=== PATIENT | female | born 1975 | race Hispanic/Latino ===

== ENCOUNTER 2022-02-18 16:27 | Emergency (ER) | payer BC, OTHER ==
[~2022-02-18] VITALS: Ht 154.9 cm; Wt 63.5 kg
[2022-02-18 17:44] LABS: APPEARANCE,URINE Clear (CLEAR); BILIRUBIN,URINE Negative (NEGATIVE); COLOR,URINE Yellow (YELLOW); GLUCOSE, URINE (UA) Negative (NEGATIVE); KETONES,URINE Negative (NEGATIVE); LEUKOCYTE ESTERASE ,URINE Trace (NEGATIVE); NITRATE,URINE Negative (NEGATIVE); OCCULT BLOOD,URINE Negative (NEGATIVE); PH,URINE 5.5 (5.0-8.0); PROTEIN,URINE Negative (NEGATIVE); UROBILINOGEN,URINE 0.2 mg/dL (0.2-1.0)
[2022-02-18 17:49] LABS: MEAN CORPUSCULAR HEMOGLOBIN 21.1 pg (27.0-33.0); MEAN CORPUSCULAR HGB CONC 29.4 g/dL (32.0-36.0); MEAN CORPUSCULAR VOLUME 71.9 fL (79-99); PLATELET COUNT (AUTO) 407 K/uL (130-400); RED BLOOD CELL COUNT(AUTO) 4.31 MIL/uL (4.00-5.50); RED CELL DISTRIBUTION WIDTH 21.9 % (11.0-15.5); WHITE BLOOD COUNT (AUTO) 9.8 K/uL (4.8-10.8)
[2022-02-18 17:51] LABS: BACTERIA,URINE Many /HPF (None Seen); MUCUS,URINE Few LPF (None Seen); RBC,URINE 0-1 /HPF (0-1)
[2022-02-18 18:01] LABS: CREATININE 0.8 mg/dL (0.5-1.5); POTASSIUM 3.2 mmol/L (3.5-5.1)
[2022-02-18 18:04] VITALS: BP 138/90
[2022-02-18 18:06] LABS: ALBUMIN 3.8 g/dL (3.5-5.0); BILIRUBIN,TOTAL 0.3 mg/dL (0.2-1.0); TOTAL PROTEIN, SERUM 7.7 g/dL (6.0-8.3)
[2022-02-18 18:19] LABS: BASOPHILS % (MANUAL) 1 % (0-2); LYMPHOCYTES % (MANUAL) 10 % (22-44); MONOCYTES % (MANUAL) 1 % (2-9); SEGMENTED NEUTROPHILS % 88 % (40-70)
[2022-02-18 18:20] LABS: MAN.DIFF COMMENT-IMPRESSION MANUAL DIF
[2022-02-18] MEDS ORDERED: POTASSIUM BICARB/CIT AC 25 MEQ TABLET.EFF PO ONE (19:00)
[2022-02-18] MEDS ORDERED: 0.9%NACL 1000ML 1,000 ML IV ONE (19:00)
[2022-02-18] MEDS ORDERED: CEFTRIAXONE 1G VIAL IVP ONE (19:00)
[2022-02-18] MEDS ORDERED: PROCHLORPERAZINE 10MG/2ML INJ IV ONE (19:00)
[2022-02-18] MEDS ORDERED: DiphenhydrAMINE HCL 50 MG/ML VIAL IV ONE (19:00)
[2022-02-18] MEDS ORDERED: CEPH500B PO (20:31)
== END 2022-02-18 21:10 | disposition home or self-care (01) ==
LOC: EDH 16:27
DX: N39.0 Urinary tract infection, site not specified (principal); E11.9 Type 2 diabetes mellitus without complications
CPT/HCPCS: 36415; 80053; 81001; 81025; 85025; 87077; 87088; 87186; 96361; 96374; 96375; 99284; J0696; J0780; J1200

== ENCOUNTER 2023-02-21 15:44 | Emergency (ER) | payer BC ==
[~2023-02-21] VITALS: Ht 154.9 cm; Wt 69.4 kg
[~2023-02-21 15:44] MED LIST: AMLO5TAB4 PO; CYAN-52 PO; FERR-82 PO; FOLI1 PO; HYDR-3830 PO; PANT40TA PO; SERT50TA PO
[2023-02-21 16:26] LABS: APPEARANCE,URINE CLEAR (CLEAR); BILIRUBIN,URINE NEGATIVE (NEGATIVE); COLOR,URINE LIGHT-YELLOW (YELLOW); GLUCOSE, URINE (UA) NEGATIVE (NEGATIVE); KETONES,URINE NEGATIVE (NEGATIVE); LEUKOCYTE ESTERASE ,URINE NEGATIVE Leu/uL (NEGATIVE); NITRATE,URINE NEGATIVE (NEGATIVE); OCCULT BLOOD,URINE NEGATIVE (NEGATIVE); PH,URINE 5.5 (5.0-8.0); PROTEIN,URINE NEGATIVE (NEGATIVE); UROBILINOGEN,URINE 0.2 mg/dL (0.2-1.0)
[2023-02-21 16:33] LABS: BACTERIA,URINE RARE /HPF (None Seen); SQUAMOUS EPITHELIAL CELL,UR MOD /HPF (0-2); WBC,URINE 0-1 /HPF (0-1)
[2023-02-21 16:33] LABS: BASOPHILS % (AUTO) 0.6 % (0.0-5.0); EOSINOPHILS % (AUTO) 2.2 % (0.0-8.0); HEMATOCRIT 36.4 % (36-48); LYMPHOCYTES % (AUTO) 15.1 % (21.0-51.0); MEAN CORPUSCULAR HEMOGLOBIN 27.8 pg (27.0-33.0); MEAN CORPUSCULAR VOLUME 84.5 fL (79-99); MONOCYTES % (AUTO) 5.1 % (3.0-13.0); NEUTROPHILS % (AUTO) 76.3 % (40.0-77.0); PLATELET COUNT (AUTO) 239 K/uL (130-400); RED BLOOD CELL COUNT(AUTO) 4.31 MIL/uL (4.00-5.50); WHITE BLOOD COUNT (AUTO) 9.4 K/uL (4.8-10.8)
[2023-02-21 16:34] LABS: AMPHET/METH SCREEN,URINE NEGATIVE (NEGATIVE); BARBITURATE SCREEN, URINE NEGATIVE (NEGATIVE); BENZODIAZEPINES SCREEN,URINE NEGATIVE (NEGATIVE); CANNABINOID SCREEN,URINE NEGATIVE (NEGATIVE); COCAINE SCREEN,URINE NEGATIVE (NEGATIVE); OPIATE SCREEN,URINE NEGATIVE (NEGATIVE); PHENCYCLIDINE SCREEN,URINE NEGATIVE (NEGATIVE)
[2023-02-21 16:54] LABS: CREATININE 0.5 mg/dL (0.5-1.5); POTASSIUM 3.7 mmol/L (3.5-5.1)
[2023-02-21 16:58] LABS: MAGNESIUM 1.6 mg/dL (1.80-2.40); TOTAL PROTEIN, SERUM 7.7 g/dL (6.0-8.3)
[2023-02-21] MEDS ORDERED: LABETALOL 20MG VIAL IV ONE (17:00)
[2023-02-21] MEDS ORDERED: LABETALOL 20MG SYG IV ONE (17:29)
[2023-02-21] MEDS ORDERED: MAGNESIUM OXIDE 400 MG TABLET PO SCH (17:30)
[2023-02-21] MEDS ORDERED: IOHEXOL-350 50ML VIAL IV ONE (17:54)
[2023-02-21] MEDS ORDERED: AMLO-258 PO (19:55)
[2023-02-21] MEDS ORDERED: LISI10TA24 PO (19:55)
[2023-02-21] MEDS ORDERED: LISINOPRIL 10 MG TABLET PO ONE (20:00)
[2023-02-21] MEDS ORDERED: AMLODIPINE 5 MG TAB PO ONE (20:00)
[2023-02-21] MEDS ORDERED: LORAZEPAM 1 MG TABLET PO ONE (20:00)
[2023-02-21] MEDS ORDERED: LISINOPRIL 10 MG TABLET ONE (20:24)
[2023-02-21] MEDS ORDERED: AMLODIPINE 5 MG TAB ONE (20:24)
[2023-02-21] MEDS ORDERED: LORAZEPAM 1 MG TABLET ONE (20:25)
[2023-02-21 20:39] VITALS: BP 157/85
== END 2023-02-21 21:03 | disposition home or self-care (01) ==
LOC: EDH 15:44
DX: I10 Essential (primary) hypertension (principal); E83.42 Hypomagnesemia; F10.10 Alcohol abuse, uncomplicated; F32.A Depression, unspecified; F41.9 Anxiety disorder, unspecified; Z79.899 Other long term (current) drug therapy; Y90.0 Blood alcohol level of less than 20 mg/100 ml
CPT/HCPCS: 99285; 96374; 70460; 71045; 83735; 84484; 80053; 80305; 85025; 81025; 36415; 93005; 81001; 70450; Q9967

== ENCOUNTER 2025-05-18 20:17 | Emergency (ER) | payer OTHER ==
[~2025-05-18] VITALS: Ht 154.9 cm; Wt 76.7 kg
[~2025-05-18 20:17] MED LIST changes: +ALPR0.5T PO; +AMLO-258 PO; -AMLO5TAB4 PO; +CEFD300C3 PO; -CYAN-52 PO; -FERR-82 PO; -FOLI1 PO; -HYDR-3830 PO; +LISI10TA24 PO; +MULT-1337 PO; -PANT40TA PO; -SERT50TA PO
--- NOTE | 2025-05-18 20:49 | EKG ---
[facility] Test Date: 2025-05-18 Test Time: 20:45:02 Pat Name: ZACK MAYES Department: ED Room: Gender: F Header Dock: [id number] : [id number] Requested By: ANDRES RECINOS Order Number: [id number] Reading MD: James Deras Measurements Intervals [place] Rate: 96 P: 27 AL: 158 QRS: 25 QRSD: 84 T: -2 QT: 345 QTc: 435 Interpretive Statements Sinus rhythm Compared to ECG 02/21/2023 15:56:15 No significant changes Electronically Signed On 05-20-2025 12:21:47 CDT by James Deras Please click the below link to view image of tracing.
[2025-05-18 21:26] LABS: IMMATURE GRANULOCYTE ABSOLUTE 0.11 K/uL (0-1); NUCLEATED RED BLOOD CELLS 0.0 % (0.0-0.19); PLATELET COUNT (AUTO) 389 K/uL (130-400); RED BLOOD CELL COUNT(AUTO) 3.92 MIL/uL (4.00-5.50); RED CELL DISTRIBUTION WIDTH 20.1 % (11.0-15.5); WHITE BLOOD COUNT (AUTO) 14.4 K/uL (4.8-10.8)
[2025-05-18 21:51] LABS: CREATINE KINASE, TOTAL 86 U/L (21-232); CREATININE 0.6 mg/dL (0.5-1.0); GLOMERULAR FILTR. RATE CALC 111 mL/min (>90); GLUCOSE,RANDOM 142 mg/dL (70-105); HCG,QUANTITATIVE 0 mIU/mL (0-5); SODIUM SERUM 131 mmol/L (136-145); UREA NITROGEN, BLOOD 10 mg/dL (7-18)
--- NOTE | 2025-05-18 22:18 | HMCIMG ---
EXAM: US for Deep Venous Thrombosis, bilateral Lower Extremity. CLINICAL HISTORY: Leg Pain and Swelling. TECHNIQUE: Real-time ultrasound scan of the veins of the bilateral lower extremity with color Doppler flow, spectral waveform analysis, and compression. COMPARISON: None provided. FINDINGS: DEEP VEINS: The common femoral, superficial femoral, and popliteal veins are echolucent and compressible. There is normal color Doppler flow throughout. The visualized calf veins appear patent. SOFT TISSUES: No popliteal fossa cyst or other abnormalities. IMPRESSION: No deep venous thrombosis is evident on bilateral lower extremity examination. /[place]
--- NOTE | 2025-05-18 22:21 | HMCIMG ---
EXAM: CR Chest, 1 view CLINICAL HISTORY: Shortness of breath. Dyspnea. COMPARISON: None provided. FINDINGS: The lungs show no infiltrates or other acute findings. No pleural effusion or pneumothorax. The cardiomediastinal silhouette is within normal limits. No acute osseous abnormality. IMPRESSION: No acute cardiopulmonary process is evident. /[place]
--- NOTE | 2025-05-18 22:46 | ERN ---
ED Note History of Present Illness Stated Complaint: C/O WEAKNESS WITH SWELLING TO FEET Chief Complaint: Lower Extremity Pain/Injury Time Seen by MD: 20:21 Dictation: 49-YEAR-OLD FEMALE WITH HISTORY OF HTN PRESENTS TO ER COMPLAINTS OF LOWER EXTREMITY SWELLING FOR THE PAST COUPLE OF WEEKS BUT NOT TODAY. STATES SHE HAS BEEN FEELING TIRED FOR THE PAST 2 WEEKS WELL. DENIES FEVER, CP OR SHORTNESS OF BREATH. Allergies: Coded Allergies: latex (Unverified Allergy, Severe, SWELLING, 01/15/25) No Known Allergies (Unverified Allergy, Unknown, 02/18/22) morphine (Unverified Allergy, Unknown, 01/14/25) paroxetine (Unverified Allergy, Unknown, 04/19/23) Home Meds Active Scripts Cefdinir (Cefdinir) 300 Mg Capsule, 1 CAP PO BID for 7 Days, #14 CAP 0 Refills Prov:BE MAYA NP 01/17/25 Lisinopril (Lisinopril) 10 Mg Tablet, 1 TAB PO DAILY for 30 Days, #30 TAB 0 Refills Prov:VALENTINA BISHOP MD 02/21/23 Amlodipine Besylate (Amlodipine Besylate) 10 Mg Tablet, 1 TAB PO DAILY for 30 Days, #30 TAB 0 Refills Prov:VALENTINA BISHOP MD 02/21/23 Reported Medications Multivitamin (One-Daily Multi-Vitamin) 1 Each Tablet, 1 TAB PO DAILY for 30 Days, #30 TAB 0 Refills 01/15/25 Alprazolam (Xanax) 0.5 Mg Tablet, 0.5 MG PO BID PRN for ANXIETY, TAB 01/15/25 Past Medical History Past Medical History: No Pertinent History, Hypertension Additional Past Medical Hx: BLOOD TRANSFUSION Surgical History: Social History: Drugs, ETOH LMP: Apr 06, 2025 Review of System Dictation CONSTITUTIONAL: NEGATIVE FOR FEVER,CHILLS, AND WEIGHT LOSS. POSITIVE FATIGUE EYES: NEGATIVE FOR INJURY, PAIN,REDNESS, AND DISCHARGE ENT: NEGATIVE FOR INJURY,PAIN OR SWELLING CARDIOVASCULAR: NEGATIVE FOR CHEST PAIN, PALPITATIONS. POSITIVE FOR LOWER LEG SWELLING RESPIRATORY: NEGATIVE FOR SHORTNESS OF BREATH, COUGH, WHEEZING, AND PLEURITIC CHEST PAIN ABDOMEN/GI: NEGATIVE FOR ABDOMINAL PAIN, NAUSEA, VOMITING, DIARRHEA, AND CONSTIPATION BACK: NEGATIVE FOR INJURY AND PAIN : NEGATIVE FOR INJURY, BLEEDING AND DISCHARGE MS/EXTREMITY: NEGATIVE FOR INJURY AND DEFORMITY SKIN: NEGATIVE FOR RASH, AND DISCOLORATION NEURO: NEGATIVE FOR HEADACHE, WEAKNESS, NUMBNESS, TINGLING, AND SEIZURE PSYCH: NEGATIVE FOR SUICIDE IDEATION, HOMICIDAL IDEATION, AND HALLUCINATIONS ALLERGY/IMMUNOLOGY: NEGATIVE FOR HIVES, RASH, AND ALLERGIES Initial Vital Sign VS Vital Signs Date Time Temp Pulse Resp B/P (MAP) Pulse Ox O2 Delivery O2 Flow Rate FiO2 05/18/25 20:20 98.6 89 20 135/75 99 Room Air 05/18/25 21:07 0 21 Physical Exam Dictation GENERAL: AWAKE, ALERT, NAD HEAD/FACE: NORMOCEPHALIC, ATRAUMATIC EYES: PERRL, EOMI, VISION AT BASELINE ENT: ORAL CAVITY CLEAR, TMS CLEAR, NO SIGNS OF INFECTION NECK: TRACHEA MIDLINE, SUPPLE, NO NUCHAL RIGIDITY CARDIOVASCULAR: RRR, NORMAL S1/S2, NO MRGS, NO JVD RESPIRATORY: CTAB, NO RESPIRATORY DISTRESS, NO RALES OR WHEEZES ABDOMEN: SOFT, NON-TENDER, NON-DISTENDED, NORMAL BOWEL SOUNDS, NO GUARDING OR REBOUND. SKIN: WARM, DRY, NORMAL TURGOR, NO RASH MS/EXTREMITY: PULSES EQUAL, NO CYANOSIS, NEUROVASCULAR INTACT, FROM NEURO: COAX4, GCS 15, STRENGTH 5/5, CN 2-12 INTACT, NORMAL CEREBELLAR EXAM, NORMAL GAIT, PSYCH: NORMAL BEHAVIOR, MOOD, AND AFFECT NORMAL Results (Laboratory/Radiology) Laboratory/Radiology Laboratory Tests Test 05/18/25 21:20 White Blood Count 14.4 K/uL (4.8-10.8) H Red Blood Count 3.92 MIL/uL (4.00-5.50) L Hemoglobin 8.8 g/dL (12.0-16.0) L Hematocrit 29.2 % (36-48) L Mean Corpuscular Volume 74.5 fL (79-99) L Mean Corpuscular Hemoglobin 22.4 pg (27.0-33.0) L Mean Corpuscular Hemoglobin Concent 30.1 g/dL (32.0-36.0) L Red Cell Distribution Width 20.1 % (11.0-15.5) H Platelet Count 389 K/uL (130-400) Mean Platelet Volume 9.5 fL (7.5-10.5) Immature Granulocyte % (Auto) 0.8 % (0-1) Neutrophils (%) (Auto) 77.1 % (40.0-77.0) H Lymphocytes (%) (Auto) 12.9 % (21.0-51.0) L Monocytes (%) (Auto) 7.0 % (3.0-13.0) Eosinophils (%) (Auto) 1.7 % (0.0-8.0) Basophils (%) (Auto) 0.5 % (0.0-5.0) Neutrophils # (Auto) 11.1 K/uL (1.8-7.7) H Lymphocytes # (Auto) 1.9 K/uL (1.0-4.8) Monocytes # (Auto) 1.0 K/uL (0.1-1.0) Eosinophils # (Auto) 0.24 K/uL (0.00-0.70) Basophils # (Auto) 0.07 K/uL (0.00-0.20) Absolute Immature Granulocyte (auto 0.11 K/uL (0-1) Nucleated Red Blood Cells 0.0 % (0.0-0.19) Red Blood Cell Morphology See comments Sodium Level 131 mmol/L (136-145) L Potassium Level 3.1 mmol/L (3.5-5.1) L Chloride Level 99 mmol/L (101-111) L Carbon Dioxide Level 29 mmol/L (21-32) Blood Urea Nitrogen 10 mg/dL (7-18) Creatinine 0.6 mg/dL (0.5-1.0) Glomerular Filtration Rate Calc 111 mL/min (>90) Random Glucose 142 mg/dL (70-105) H Total Calcium 8.7 mg/dL (8.5-10.1) Total Creatine Kinase 86 U/L (21-232) Troponin I High Sensitivity < 4.0 ng/L (4-50) L B-Type Natriuretic Peptide 47 pg/mL (0-100) Human Chorionic Gonadotropin, Quant 0 mIU/mL (0-5) EKG: (+) NSR ED Course ED Course Orders Procedure Category Date Status Time Cbc With Differential LAB 05/18/25 Complete 20:37 Cardiac Panel LAB 05/18/25 Complete 20:37 Hcg,Quantitative LAB 05/18/25 Complete 20:37 12 Lead Ekg Tracing- EKG 05/18/25 Complete Technical 20:37 Basic Metabolic Panel LAB 05/18/25 Complete 20:37 B-Type Natriuretic LAB 05/18/25 Complete Peptide 20:37 Us Venous Doppler US 05/18/25 Resulted Bilateral 20:39 Chest 1vw RAD 05/18/25 Resulted 20:37 Urinalysis Profile LAB 05/18/25 Logged 22:46 Vital Signs Date Time Temp Pulse Resp B/P (MAP) Pulse Ox O2 Delivery O2 Flow Rate FiO2 05/18/25 21:07 98.6 89 20 135/75 99 Room Air* 0 21 05/18/25 20:20 98.6 89 20 135/75 99 Room Air Medical Decision Making MDM 49-YEAR-OLD FEMALE WITH HISTORY OF HTN. COMPLAINS OF BILATERAL LOWER LEG SWELLING X2 WEEKS NONE TODAY. PATIENT STATES SHE HAS BEEN FEELING FATIGUED FOR THE PAST 2 WEEKS. DENIES CHEST PAIN OR SHORTNESS OF BREATH. MDM: DIFFERENTIAL DIAGNOSIS: CHF, PEDAL EDEMA, UNCONTROLLED HTN RATIONALE: TESTS CONSIDERED AND ORDERED SECONDARY TO SHARED DECISION MAKING INCLUDE: LABS, ECG AND RADIOLOGY PREVIOUS OUTSIDE RECORDS REVIEWED: OLD ER VISITS. RISK OF COMPLICATION AND/OR MORBIDITY OR MORTALITY OF PATIENT MANAGEMENT: NONE MEDICATIONS-PER MEDICATION RECONCILIATION NEED FOR HOSPITALIZATION: PATIENT DOES NOT MEET CRITERIA FOR HOSPITALIZATION. NEED FOR EMERGENCY MAJOR/MINOR SURGERY: NO MILDLY ELEVATED WBC ON LAB NOTED. POSSIBLY DUE TO LABORATORY SHOWING PROBABLE DEHYDRATION. WILL HYDRATE WITH IV NS IN ER. ELEVATED BLOOD SUGAR AT 142. PAT IENT ADVISED TO FOLLOW UP WITH PCP TO GET EVALUATED TO RULE OUT DIABETES. ALSO TO FOLLOW UP ON HER HIGH BLOOD PRESSURE AND LOWER LEG SWELLING. PATIENT AGREES WITH PLAN PATIENT VSS, NAD, NONTOXIC, STABLE FOR DISCHARGE. PT GIVEN DISCHARGE INSTRUCTIONS IN [place] TERMS AND UNDERSTOOD, ALL QUESTIONS ANSWERED. PT WILL FOLLOW UP WITH PCP AND RETURN TO THE ER IF WORSE. THERE ARE NO SOCIAL CONCERNS WITH THIS PATIENT. PRESCRIPTION DRUG MANAGEMENT PRESCRIPTIONS WILL INCLUDE SYMPTOMATIC CARE PATIENT'S PRIOR EXTERNAL MEDICAL RECORDS FROM OTHER ER VISITS WERE REVIEWED BY ME INDICATED. PRIOR TESTING AND RESULTS FROM PREVIOUS VISITS WERE REVIEWED. PRIOR TESTS WERE TAKEN INTO ACCOUNT WITH MEDICAL DECISION MAKING AND RESOURCE UTILIZATION, INDEPENDENT HISTORIAN/HISTORIANS WERE USED TO OBTAIN COMPLETE MEDICAL HISTORY. I INDEPENDENTLY INTERPRETED THE TEST THAT WERE PERFORMED, RESULTS WERE REVIEWED BY ME AND CONSIDERED FINDINGS ON RADIOLOGY IF ORDERED. DX & DISP Disposition: Discharge Departure Impression: Primary Impression: HTN (hypertension) Additional Impressions: Dehydration, Elevated blood sugar Condition: Stable Additional Instructions: FOLLOW-UP WITH YOUR PCP IN 24-72 HOURS AND IN THE EVENT IF SYMPTOMS WORSEN OR AN EMERGENCY OVERNIGHT REPORT TO THE ED IMMEDIATELY Referrals: GEETA CARLOS (PCP) ANDRES RECINOS NP May 18, 2025 22:46
[2025-05-18] MEDS: 0.9%NACL 1000ML 1,000 ML IV ONE (23:46)
[2025-05-19 01:55] VITALS: BP 117/63; PULSE 83; RESP 16; TEMP 98.1; O2SAT 98
[2025-05-19 02:19] LABS: APPEARANCE,URINE CLEAR (CLEAR); GLUCOSE, URINE (UA) NEGATIVE (NEGATIVE); LEUKOCYTE ESTERASE ,URINE NEGATIVE Leu/uL (NEGATIVE); NITRATE,URINE NEGATIVE (NEGATIVE); OCCULT BLOOD,URINE NEGATIVE (NEGATIVE)
[2025-05-19 02:27] LABS: ADD UA MICROSCOPIC NO
== END 2025-05-19 02:39 | disposition home or self-care (01) ==
LOC: EDH 20:17
DX: I10 Essential (primary) hypertension (principal); E86.0 Dehydration; R10.2 Pelvic and perineal pain; M79.662 Pain in left lower leg; M79.661 Pain in right lower leg; Z79.899 Other long term (current) drug therapy; Z88.5 Allergy status to narcotic agent
CPT/HCPCS: 99285; 93970; 71045; 82550; 84484; 80048; 83880; 84702; 85025; 81003; 36415; 93005; J7030

== ENCOUNTER 2025-06-25 17:51 | Emergency (ER) | payer OTHER ==
[~2025-06-25] VITALS: Ht 154.9 cm; Wt 73.5 kg
--- NOTE | 2025-06-25 18:05 | NUR ---
PT ALSO REPORTING BURNING WITH URINATION
[2025-06-25 18:17] LABS: ADD UA MICROSCOPIC YES; APPEARANCE,URINE CLOUDY (CLEAR); GLUCOSE, URINE (UA) NEGATIVE (NEGATIVE); LEUKOCYTE ESTERASE ,URINE 250 Leu/uL (NEGATIVE); NITRATE,URINE NEGATIVE (NEGATIVE); OCCULT BLOOD,URINE LARGE (NEGATIVE)
[2025-06-25 18:22] LABS: RAPID GROUP A STREP negative (NEGATIVE)
[2025-06-25 18:23] LABS: SQUAMOUS EPITHELIAL CELL,UR MOD /HPF (0-2)
[2025-06-25 18:32] LABS: COVID19 (SARS ANTIGEN RAPID) PRESUMPTIVE NEGATIVE (NEGATIVE); INFLUENZA TYPE A Negative For Type A (NEGATIVE); INFLUENZA TYPE B Negative For Type B (NEGATIVE)
[2025-06-25 18:44] LABS: IMMATURE GRANULOCYTE ABSOLUTE 0.05 K/uL (0-1); NUCLEATED RED BLOOD CELLS 0.0 % (0.0-0.19); PLATELET COUNT (AUTO) 248 K/uL (130-400); RED BLOOD CELL COUNT(AUTO) 3.19 MIL/uL (4.00-5.50); RED CELL DISTRIBUTION WIDTH 24.4 % (11.0-15.5); WHITE BLOOD COUNT (AUTO) 5.1 K/uL (4.8-10.8)
[2025-06-25] MEDS: [UNRECOGNIZED DRUG - OTHER] IV ONE (18:49)
[2025-06-25 18:57] LABS: CREATINE KINASE, TOTAL 43.0 U/L (21-232); CREATININE 0.6 mg/dL (0.5-1.0); GLOMERULAR FILTR. RATE CALC 110.0 mL/min (>90); GLUCOSE,RANDOM 136.0 mg/dL (70-105); SODIUM SERUM 136.0 mmol/L (136-145); UREA NITROGEN, BLOOD 8.0 mg/dL (7-18)
--- NOTE | 2025-06-25 19:06 | HMCIMG ---
EXAM: CR Chest, 1 View. CLINICAL HISTORY: cough COMPARISON: None provided. FINDINGS: LUNGS: The lungs show no infiltrate or other acute finding. PLEURAL SPACES: No pleural effusion or pneumothorax. MEDIASTINUM: Cardiac size and mediastinal contours within normal limits. BONES: No acute osseous abnormality. IMPRESSION: No acute cardiopulmonary pathology is evident. /[place]
[2025-06-25 19:47] VITALS: TEMP 98.8
[2025-06-25] MEDS ORDERED: NITR100C4 PO (19:51)
[2025-06-25 19:52] VITALS: BP 112/68; PULSE 104; RESP 16; TEMP 98.8; O2SAT 98
--- NOTE | 2025-06-25 19:53 | ERN ---
ED Note History of Present Illness Stated Complaint: VOMITING, FEVER, SEVERELY LETHARGIC Chief Complaint: Multiple Complaints Time Seen by MD: 17:57 Time Seen by Midlevel: 17:57 Dictation: The Patient is a 50-year-old female with a history of hypertension who presents to the emergency department with complaints of fevers, nausea nonbloody vomiting, runny nose, occasional productive cough onset one week. Patient reports she was seen by her primary doctor who diagnosed her with a an upper respiratory infection and a UTI. Reports occasional epigastric pain with vomiting. Allergies: Coded Allergies: latex (Unverified Allergy, Severe, SWELLING, 01/15/25) No Known Allergies (Unverified Allergy, Unknown, 02/18/22) morphine (Unverified Allergy, Unknown, 01/14/25) paroxetine (Unverified Allergy, Unknown, 04/19/23) Home Meds Active Scripts Cefdinir (Cefdinir) 300 Mg Capsule, 1 CAP PO BID for 7 Days, #14 CAP 0 Refills Prov:BE MAYA NP 01/17/25 Lisinopril (Lisinopril) 10 Mg Tablet, 1 TAB PO DAILY for 30 Days, #30 TAB 0 Refills Prov:VALENTINA BISHOP MD 02/21/23 Amlodipine Besylate (Amlodipine Besylate) 10 Mg Tablet, 1 TAB PO DAILY for 30 Days, #30 TAB 0 Refills Prov:VALENTINA BISHOP MD 02/21/23 Reported Medications Multivitamin (One-Daily Multi-Vitamin) 1 Each Tablet, 1 TAB PO DAILY for 30 Days, #30 TAB 0 Refills 01/15/25 Alprazolam (Xanax) 0.5 Mg Tablet, 0.5 MG PO BID PRN for ANXIETY, TAB 01/15/25 Past Medical History Past Medical History: Hypertension Additional Past Medical Hx: BLOOD TRANSFUSION Surgical History: None Social History: Drugs, ETOH RN Note Reviewed/Agreed w/PFSH: Yes Review of System Dictation Constitutional: Negative for chills, and weight loss positive for fevers, fatigue Eyes: Negative for injury, pain,redness, and discharge ENT: Negative for injury,pain or swelling Cardiovascular: Negative for chest pain, palpitations, and edema Respiratory: Negative for shortness of breath, and wheezing, positive for cough Abdomen/GI: Negative for diarrhea, and constipation positive for abdominal pain, nausea, vomiting Back: Negative for injury and pain : Negative for injury, bleeding and discharge MS/Extremity: Negative for injury and deformity Skin: Negative for rash, and discoloration Neuro: Negative for headache, weakness, numbness, tingling, and seizure Psych: Negative for suicide ideation, homicidal ideation, and hallucinations Initial Vital Sign VS Vital Signs Date Time Temp Pulse Resp B/P (MAP) Pulse Ox O2 Delivery O2 Flow Rate FiO2 06/25/25 17:53 103.3 112 15 112/68 98 Room Air 0 06/25/25 18:23 21 Physical Exam Dictation Vital Signs reviewed General Appearance: Alert, oriented x 3, no acute distress, well developed, nourished. Head and Face: non-traumatic. Eyes: PERRL, pink conjunctivas, eyelid no trauma, anterior chamber with arcus se nilis. Ears: Pinnas intact and no signs of trauma or erythema ear canals clear and no discharge TM no erythema Nose: No discharge, no bleeding. Oropharynx: Mouth normal, tongue pink. pharynx clear,no erythema, tonsils no exudates, no abscesses noted, mucous membrane moist Neck: Supple, non-tender, no thyromegaly, no masses, no JVD, no bruits Breast:Deferred Chest:No tenderness, no crepitus, no paradoxical movement, no retractions Lungs:Clear, well-ventilated, symmetric, no rales, no wheezing, no rhonchi, no stridor, good breath sounds bilaterally Heart: Regular rate, regular rhythm, no murmur, no gallops Vascular: no peripheral edema, Abdomen: Soft, positive bowel sounds, nondistended, no guarding, nontender, no rebound, no masses no hepatomegaly, no splenomegaly, no [place]aniagua's sign, no hernias. Rectal: Deferred Genital: Deferred Neurological: Normal speech, motor function intact, sensory function intact Musculoskeletal: Neck nontender, full range of motion, back nontender, full range of motion, Extremities: nontender, full range of motion Skin: Color pink, dry, no turgor, no rash, no lacerations, no abrasions, no contusions. Lymphatic: Deferred Results (Laboratory/Radiology) Laboratory/Radiology Laboratory Tests Test 06/25/25 18:04 06/25/25 18:08 06/25/25 18:28 Influenza Type A Antigen Negative For Type A Influenza Type B Antigen Negative For Type B SARS-CoV-2 Antigen (Rapid) PRESUMPTIVE NEGATIVE Group A Streptococcus Rapid negative (NEGATIVE) Urine Color RED (YELLOW) H Urine Appearance CLOUDY (CLEAR) H Urine pH 6.0 (5.0-8.0) Urine Specific [place] 1.016 (1.001-1.031) Urine Protein 100 mg/dL (NEGATIVE) H Urine Glucose (UA) NEGATIVE mg/dL (NEGATIVE) Urine Ketones NEGATIVE mg/dL (NEGATIVE) Urine Occult Blood LARGE (NEGATIVE) H Urine Nitrate NEGATIVE (NEGATIVE) Urine Bilirubin NEGATIVE mg/dL (NEGATIVE) Urine Urobilinogen 2.0 mg/dL (0.2-1.0) H Urine Leukocyte Esterase 250 [place]/uL (NEGATIVE) H Urine RBC TNTC /HPF (0-1) H Urine WBC 26-50 /HPF (0-1) H Urine Squamous Epithelial Cells MOD /HPF (0-2) Urine Bacteria FEW /HPF (None Seen) Urine HCG, Qualitative NEGATIVE (NEGATIVE) White Blood Count 5.1 K/uL (4.8-10.8) Red Blood Count 3.19 MIL/uL (4.00-5.50) L Hemoglobin 7.8 g/dL (12.0-16.0) L Hematocrit 25.1 % (36-48) L Mean Corpuscular Volume 78.7 fL (79-99) L Mean Corpuscular Hemoglobin 24.5 pg (27.0-33.0) L Mean Corpuscular Hemoglobin Concent 31.1 g/dL (32.0-36.0) L Red Cell Distribution Width 24.4 % (11.0-15.5) H Platelet Count 248 K/uL (130-400) Mean Platelet Volume 9.6 fL (7.5-10.5) Immature Granulocyte % (Auto) 1.0 % (0-1) Neutrophils (%) (Auto) 67.5 % (40.0-77.0) Lymphocytes (%) (Auto) 25.0 % (21.0-51.0) Monocytes (%) (Auto) 5.3 % (3.0-13.0) Eosinophils (%) (Auto) 0.4 % (0.0-8.0) Basophils (%) (Auto) 0.8 % (0.0-5.0) Neutrophils # (Auto) 3.5 K/uL (1.8-7.7) Lymphocytes # (Auto) 1.3 K/uL (1.0-4.8) Monocytes # (Auto) 0.3 K/uL (0.1-1.0) Eosinophils # (Auto) 0.02 K/uL (0.00-0.70) Basophils # (Auto) 0.04 K/uL (0.00-0.20) Absolute Immature Granulocyte (auto 0.05 K/uL (0-1) Nucleated Red Blood Cells 0.0 % (0.0-0.19) Sodium Level 136 mmol/L (136-145) Potassium Level 3.3 mmol/L (3.5-5.1) L Chloride Level 101 mmol/L (101-111) Carbon Dioxide Level 26 mmol/L (21-32) Blood Urea Nitrogen 8 mg/dL (7-18) Creatinine 0.6 mg/dL (0.5-1.0) Glomerular Filtration Rate Calc 110 mL/min (>90) Random Glucose 136 mg/dL (70-105) H Lactic Acid Level 1.4 mmol/L (0.8-2.5) Total Calcium 8.3 mg/dL (8.5-10.1) L Total Creatine Kinase 43 U/L (21-232) # Troponin I High Sensitivity < 4 ng/L (4-50) L Lipase 34 U/L (16-77) REASON: cough ORDERING PHYSICIAN: TIERRA KHOURY PROCEDURE: CXR1VW - CHEST 1VW EXAM: CR Chest, 1 View. CLINICAL HISTORY: cough COMPARISON: None provided. FINDINGS: LUNGS: The lungs show no infiltrate or other acute finding. PLEURAL SPACES: No pleural effusion or pneumothorax. MEDIASTINUM: Cardiac size and mediastinal contours within normal limits. BONES: No acute osseous abnormality. IMPRESSION: No acute cardiopulmonary pathology is evident. /[place] Labs Reviewed?: Yes EKG: (+) rhythm (Sinus tachycardia) EKG Comment: Date:06/25/2025 Time:1828 Ventricular rate:102 [place] interval:161 QRS duration:90 QT/QTc:360/469 EKG interpretation: Sinus tachycardia, borderline T-wave abnormalities Reviewed by ED Attending no STEMI ED Course ED Course Orders Procedure Category Date Status Time Influenza Type A & B, LAB 06/25/25 Complete Rapid 17:58 Covid19 (Sars Antigen LAB 06/25/25 Complete Rapid) 17:58 Rapid (Group A Strep) LAB 06/25/25 Complete 17:58 Urinalysis Profile LAB 06/25/25 Complete 18:07 Culture Urine JELENA 06/25/25 In Process 18:17 ,Urine Test LAB 06/25/25 Complete 18:21 Cbc With Differential LAB 06/25/25 In Process 18:21 Ondansetron 4mg Inj PHA 06/25/25 Complete (Zofran 4mg Inj) 18:30 Pantoprazole 40mg Inj PHA 06/25/25 Complete (Protonix 40mg Inj 18:30 Chest 1vw RAD 06/25/25 Resulted 18:21 Lipase LAB 06/25/25 Complete 18:21 Basic Metabolic Panel LAB 06/25/25 Complete 18:21 Blood Cult JELENA 06/25/25 In Process 18:21 Acetaminophen 500mg PHA 06/25/25 Complete Tab (Tylenol 500mg T 18:30 0.9%Nacl 1000ml (Ns PHA 06/25/25 In Process 1000ml) 18:30 Creatine Kinase, Total LAB 06/25/25 Complete 18:21 Troponin I High LAB 06/25/25 Complete Sensitivity 18:21 Lactic Acid LAB 06/25/25 Complete 18:21 Ceftriaxone 1g Vial PHA 06/25/25 Complete (Rocephine 1g Inj) 18:30 12 Lead Ekg Tracing- EKG 06/25/25 Logged Technical 18:21 Potassium Bicarb/Cit PHA 06/25/25 In Process Ac 25meq (K-Lyte Ta 20:00 Current Medications Medications (Trade) Dose Ordered Sig/Eusebio Route PRN Reason Start Time Stop Time Status Last Admin Dose Admin Acetaminophen (TYLenol 500MG TAB) 1,000 mg ONCE ONCE PO 06/25/25 18:30 06/25/25 18:31 DC 06/25/25 18:50 Ceftriaxone Sodium (ROCEphine 1G INJ) 1 gm ONCE ONCE IVPB 06/25/25 18:30 06/25/25 18:31 DC 06/25/25 18:50 Ondansetron HCl (zoFRAN 4MG INJ) 4 mg ONCE ONCE IVP 06/25/25 18:30 06/25/25 18:31 DC 06/25/25 18:49 Pantoprazole Sodium (PROTonix 40MG INJ) 40 mg ONCE ONCE IVP 06/25/25 18:30 06/25/25 18:31 DC 06/25/25 18:49 Potassium Bicarbonate (K-Lyte Tablet Eff 25 Meq Tablet.eff) 25 meq ONCE ONCE PO 06/25/25 20:00 06/25/25 20:01 UNV Sodium Chloride 1,700 ml @ 566.667 mls/hr ONCE ONCE IV 06/25/25 18:30 06/25/25 21:29 06/25/25 18:49 Vital Signs Date Time Temp Pulse Resp B/P (MAP) Pulse Ox O2 Delivery O2 Flow Rate FiO2 06/25/25 18:50 103.3 06/25/25 18:23 103.3 104 16 112/68 98 Room Air* 0 21 06/25/25 17:53 103.3 112 15 112/68 98 Room Air 0 Medical Decision Making MDM The Patient is a 50-year-old female with a history of hypertension who presents to the emergency department with complaints of fevers, nausea nonbloody vomiting, runny nose, occasional productive cough onset one week. Patient reports she was seen by her primary doctor who diagnosed her with a an upper respiratory infection and a UTI. Reports occasional epigastric pain with vomiting. CBC showed no leukocytosis, microcytic anemia, chemistry showed mild hypokalemia, normal renal function, negative lipase, negative troponins, negative lactic acid, urinalysis positive for leukocyte esterase. Patient was t reated with Rocephin. Chest x-ray showed no acute pathology. Serology was negative. Patient has symptoms consistent with a an upper respiratory infection. On physical exam patient is in no acute distress, nontoxic appearance, nontender abdomen we will be discharged to follow up with the PCP. Differential diagnosis: Sepsis, UTI, gastritis, upper respiratory infection, pneumonia Need for hospitalization: Patient does not meet criteria for hospitalization. There are no social concerns with this patient. DX & DISP Disposition: Discharge Departure Impression: Primary Impression: URI (upper respiratory infection) Additional Impressions: UTI (urinary tract infection), Anemia Condition: Stable Scripts Nitrofurantoin Monohyd/M-Cryst (Macrobid 100 mg Capsule) 100 Mg Capsule 1 CAP PO BID for 5 Days, #10 CAP 0 Refills Prov: PENGTIERRA WEST 06/25/25 Additional Instructions: Your potassium was slightly low and you are anemic. Your urinalysis demonstrated a urinary tract infection. Your chest x-ray was normal. The rest of your labs were unremarkable. Please take your medications as prescribed. Follow up with your primary doctor in 1-2 days. FOLLOW-UP WITH PRIMARY CARE PROVIDER IN 1 TO 2 DAYS. TAKE MEDICATIONS DIRECTED HERE IN THE EMERGENCY ROOM. OKAY TO CONTINUE HOME MEDICATIONS UNLESS OTHERWISE DISCUSSED DURING YOUR VISIT IN THE EMERGENCY ROOM TODAY. RETURN TO YOUR NEAREST EMERGENCY ROOM IF SYMPTOMS WORSEN OR IF THERE IS NO IMPROVEMENT. CALL 911 IF YOU NEED IMMEDIATE ASSISTANCE. TAKE TYLENOL [id number] NEEDED AND IF NO CONTRAINDICATIONS ARE PRESENT. INCREASE ORAL HYDRATION. A WOUND CULTURE OR URINE CULTURE WAS ORDERED HERE IN THE EMERGENCY ROOM DEPARTMENT PLEASE FOLLOW-UP WITH PRIMARY CARE PROVIDER AND ADVISE THEM TO GET REPEAT PORTS FROM OUR FACILITY. IF YOU HAD ANY EDDIE WRAP/SPLINTS THAT WERE APPLIED HERE, PLEASE DO NOT REMOVE THEM UNTIL YOU SEE YOUR PRIMARY CARE OR SPECIALTY. Referrals: ENOCH LOGAN (PCP) Time of Disposition: 19:51 I have reviewed the case, and I agree with, Diagnosis and Plan TIERRA KHOURY Jun 25, 2025 19:53
--- NOTE | 2025-06-26 00:32 | EKG ---
[facility] Test Date: 2025-06-25 Test Time: 18:28:05 Pat Name: ZACK MAYES Department: ED Room: Gender: F Gut Puller: [id number] : 1975 Requested By: TIERRA KHOURY Order Number: [id number] Reading MD: James Deras Measurements Intervals [place] Rate: 102 P: 11 [place]: 161 QRS: 15 QRSD: 90 T: -12 QT: 360 QTc: 469 Interpretive Statements Sinus tachycardia Borderline T abnormalities, diffuse leads Compared to ECG 05/18/2025 20:45:02 T-wave abnormality now present Sinus rhythm no longer present Electronically Signed On 06-27-2025 12:49:30 CDT by James Deras Please click the below link to view image of tracing.
== END 2025-06-25 20:01 | disposition home or self-care (01) ==
LOC: EDH 17:51
DX: J06.9 Acute upper respiratory infection, unspecified (principal); N39.0 Urinary tract infection, site not specified; I10 Essential (primary) hypertension; Z79.899 Other long term (current) drug therapy; Z88.5 Allergy status to narcotic agent; Z91.040 Latex allergy status; Z20.822 Contact with and (suspected) exposure to COVID-19
CPT/HCPCS: 99285; 96365; 96375; 71045; 87426; 82550; 84484; 80048; 83690; 85025; 87040 ×2; 87086; 87880; 87804 ×2; 83605; 81001; 81025; 36415; 93005; J0696; J2405; J2470